=== PATIENT | male | born 1995 | race Caucasian/White ===

== ENCOUNTER 2018-05-17 22:22 | Emergency (ER) | payer SELFPAY ==
[~2018-05-17] VITALS: Ht 170.2 cm; Wt 68.0 kg
[2018-05-17 23:10] VITALS: BP 102/62
== END 2018-05-18 00:50 | disposition home or self-care (01) ==
LOC: ER 22:47
DX: S01.01XA Laceration without foreign body of scalp, initial encounter (principal); W01.0XXA Fall on same level from slipping, tripping and stumbling without subsequent striking against object, initial encounter; Y93.89 Activity, other specified; Y99.8 Other external cause status; Y92.89 Other specified places as the place of occurrence of the external cause
CPT/HCPCS: 12001

== ENCOUNTER 2018-05-30 09:14 | Emergency (ER) | payer MEDICAID, OTHER ==
[~2018-05-30] VITALS: Ht 170.2 cm; Wt 68.0 kg
[2018-05-30 09:24] VITALS: BP 103/72
== END 2018-05-30 09:54 | disposition home or self-care (01) ==
LOC: ER 09:14
DX: S01.01XD Laceration without foreign body of scalp, subsequent encounter (principal); X58.XXXD Exposure to other specified factors, subsequent encounter